=== PATIENT | female | born 1945 | race Two or more races ===

== ENCOUNTER 2023-10-19 23:33 | Inpatient (IN) | payer MEDICARE, OTHER ==
[~2023-10-19] VITALS: Ht 160 cm; Wt 54.4 kg
[2023-10-19] MEDS ORDERED: AMLO-212 PO (23:48)
[2023-10-19] MEDS ORDERED: METO-356 PO (23:48)
[2023-10-19] MEDS ORDERED: LOSA25TA27 PO (23:48)
[2023-10-19] MEDS ORDERED: ROSU10TA2 PO (23:48)
[2023-10-20] MEDS ORDERED: MAGNESIUM HYDROXIDE 30 ML LIQUID UDC PO PRN (01:00)
[2023-10-20] MEDS ORDERED: REMEDY ESSENTIAL ZINC PASTE 113 GM TP PRN (01:00)
[2023-10-20] MEDS: MORPHINE SULFATE 2 MG/1 ML DISP.SYRIN IV PRN ×3 (01:20→20:30)
[2023-10-20] MEDS: ONDANSETRON 4 MG/2 ML VIAL IV PRN (01:21)
[2023-10-20 05:36] LABS: BASOPHILS % (AUTO) 0.4 % (0.0-2.0); EOSINOPHILS % (AUTO) 0.2 % (0.0-7.0); HEMATOCRIT 29.5 % (31.2-41.9); HEMOGLOBIN 9.7 g/dL (10.9-14.3); LYMPHOCYTES # (AUTO) 0.6 K/uL (0.8-4.8); LYMPHOCYTES % (AUTO) 6.8 % (20.5-51.5); MEAN CORPUSCULAR HEMOGLOBIN 27.4 uug (24.7-32.8); MEAN CORPUSCULAR HGB CONC 33 g/dL (32.3-35.6); MEAN CORPUSCULAR VOLUME 83.4 fL (75.5-95.3); MONOCYTES # (AUTO) 0.4 K/uL (0.1-1.30); MONOCYTES % (AUTO) 4.6 % (0.0-11.0); NEUTROPHILS # (AUTO) 7.8 K/uL (1.8-8.9); PLATELET COUNT (AUTO) 222 K/uL (179-408); RED BLOOD CELL COUNT(AUTO) 3.53 MIL/uL (3.63-4.92); RED CELL DISTRIBUTION WIDTH 14.9 % (12.3-17.7); WHITE BLOOD COUNT (AUTO) 8.9 K/uL (3.8-11.8)
[2023-10-20 05:38] LABS: DIFFERENTIAL COMMENT 1
[2023-10-20 05:49] LABS: ALBUMIN 3.2 g/dL (3.4-5.0); BILIRUBIN,TOTAL 0.3 mg/dL (0.2-1.0); CALCIUM 8.8 mg/dL (8.5-10.1); CREATININE 0.8 mg/dL (0.6-1.3); MAGNESIUM 2.1 mg/dL (1.8-2.4); POTASSIUM 4.7 mmol/L (3.5-5.1)
[2023-10-20] MEDS ORDERED: AMLODIPINE 5 MG TABLET ONE (09:22)
[2023-10-20] MEDS ORDERED: METOPROLOL SUCCINATE XL 25 MG TAB.SR.24H PO ONE (09:23)
[2023-10-20] MEDS: LOSARTAN POTASSIUM 25 MG TABLET PO SCH (09:28)
[2023-10-20] MEDS: METOPROLOL SUCCINATE XL 25 MG TAB.SR.24H PO SCH (09:29)
[2023-10-20] MEDS: AMLODIPINE 5 MG TABLET PO SCH (09:29)
[2023-10-20] MEDS ORDERED: MORPHINE SULFATE 2 MG/1 ML DISP.SYRIN ONE (12:04)
[2023-10-20 18:40] VITALS: BP 139/69; TEMP 98; O2SAT 96
[2023-10-20] MEDS: ATORVASTATIN 20 MG TABLET PO SCH (20:29)
[2023-10-20 21:36] VITALS: BP 163/70; TEMP 98.2; O2SAT 93
[2023-10-21 05:43] VITALS: BP 140/67; TEMP 98; O2SAT 94
[2023-10-21 08:00] VITALS: BP 141/54; TEMP 98; O2SAT 94
[2023-10-21] MEDS: LOSARTAN POTASSIUM 25 MG TABLET PO SCH (09:52)
[2023-10-21] MEDS: AMLODIPINE 5 MG TABLET PO SCH (09:55)
[2023-10-21] MEDS: METOPROLOL SUCCINATE XL 25 MG TAB.SR.24H PO SCH (09:55)
[2023-10-21 11:51] VITALS: BP 125/61; TEMP 98.6; O2SAT 94
[2023-10-21] MEDS ORDERED: VANCOMYCIN 1000 MG VIAL ONE (12:14)
[2023-10-21] MEDS ORDERED: BUPIVACAINE 0.25% 30 ML VIAL ONE (12:14)
[2023-10-21] MEDS ORDERED: FENTANYL CITRATE 100 MCG/2 ML AMPUL ONE (14:18)
[2023-10-21] MEDS ORDERED: HYDROCODONE/APAP 5-325MG TABLET PO PRN (16:45)
[2023-10-21] MEDS ORDERED: MORPHINE SULFATE 2 MG/1 ML DISP.SYRIN IV PRN (16:45)
[2023-10-21 17:34] VITALS: BP 110/61; TEMP 97.6; O2SAT 98
[2023-10-21] MEDS: POTASSIUM CHLORIDE 20 MEQ in IV D5 1/2 NS 1000 ML 1,000 ML IV PRN (20:07)
[2023-10-21 20:15] VITALS: BP 90/51; TEMP 97.5; O2SAT 95
[2023-10-21] MEDS: ATORVASTATIN 20 MG TABLET PO SCH (21:50)
[2023-10-21] MEDS: CEFAZOLIN 1 G in IV DEXTROSE 5% 50 ML IV SCH (22:02)
[2023-10-22 05:35] VITALS: BP 93/44; TEMP 98.4; O2SAT 94
[2023-10-22 06:28] LABS: BASOPHILS % (AUTO) 0.2 % (0.0-2.0); LYMPHOCYTES # (AUTO) 0.6 K/uL (0.8-4.8); LYMPHOCYTES % (AUTO) 6.1 % (20.5-51.5); MEAN CORPUSCULAR HEMOGLOBIN 27.6 uug (24.7-32.8); MEAN CORPUSCULAR HGB CONC 33 g/dL (32.3-35.6); MEAN CORPUSCULAR VOLUME 83.4 fL (75.5-95.3); MONOCYTES # (AUTO) 0.7 K/uL (0.1-1.30); NEUTROPHILS # (AUTO) 8.4 K/uL (1.8-8.9); NEUTROPHILS % (AUTO) 86.7 % (38.5-71.5); PLATELET COUNT (AUTO) 186 K/uL (179-408); RED CELL DISTRIBUTION WIDTH 14.9 % (12.3-17.7); WHITE BLOOD COUNT (AUTO) 9.7 K/uL (3.8-11.8)
[2023-10-22] MEDS: CEFAZOLIN 1 G in IV DEXTROSE 5% 50 ML IV SCH (06:32)
[2023-10-22 06:52] LABS: CALCIUM 8.1 mg/dL (8.5-10.1); CARBON DIOXIDE 24 mmol/L (21-32); CHLORIDE 102 mmol/L (98-107); CREATININE 1.5 mg/dL (0.6-1.3); GLUCOSE 190 mg/dL (74-106); PHOSPHOROUS 4.5 mg/dL (2.5-4.9); POTASSIUM 4.6 mmol/L (3.5-5.1); SODIUM SERUM 134 mmol/L (136-145); UREA NITROGEN, BLOOD 29 mg/dL (7-18)
[2023-10-22 08:44] LABS: DIFFERENTIAL COMMENT 1; RED BLOOD CELL COUNT(AUTO) 2.43 MIL/uL (3.63-4.92)
[2023-10-22 08:47] LABS: HEMATOCRIT 20.2 % (31.2-41.9); HEMOGLOBIN 6.7 g/dL (10.9-14.3)
[2023-10-22] MEDS: METOPROLOL SUCCINATE XL 25 MG TAB.SR.24H PO SCH (09:25)
[2023-10-22] MEDS: AMLODIPINE 5 MG TABLET PO SCH (09:25)
[2023-10-22] MEDS: LOSARTAN POTASSIUM 25 MG TABLET PO SCH (09:26)
[2023-10-22 09:30] VITALS: BP 116/95; TEMP 97; O2SAT 98
[2023-10-22 12:00] VITALS: BP 98/46; TEMP 97.9; O2SAT 98
[2023-10-22] MEDS: ACETAMINOPHEN 325 MG TABLET PO PRN (12:01)
[2023-10-22 12:25] LABS: PLATELET ESTIMATE ADEQUATE
[2023-10-22 12:29] LABS: LYMPHOCYTES % (MANUAL) 2 % (20-40); MONOCYTES % (MANUAL) 4 % (2-10); NEUTROPHILS % (MANUAL) 94 % (42-75)
[2023-10-22 15:44] VITALS: BP 107/53; TEMP 97.8; O2SAT 96
[2023-10-22] MEDS ORDERED: CALCIUM CARBONATE 500 MG TAB.CHEW PO PRN (18:00)
[2023-10-22 20:00] VITALS: BP 103/50; TEMP 98; O2SAT 92
[2023-10-22] MEDS: ATORVASTATIN 20 MG TABLET PO SCH (21:02)
[2023-10-22] MEDS: POTASSIUM CHLORIDE 20 MEQ in IV D5 1/2 NS 1000 ML 1,000 ML IV PRN (21:04)
[2023-10-23] VITALS (17 sets, daily range): BP systolic 94–148; BP diastolic 46–71; TEMP 97.1–98.7; O2SAT 93–96
[2023-10-23 07:09] LABS: BASOPHILS % (AUTO) 0.4 % (0.0-2.0); EOSINOPHILS % (AUTO) 0.5 % (0.0-7.0); LYMPHOCYTES # (AUTO) 0.9 K/uL (0.8-4.8); LYMPHOCYTES % (AUTO) 11.9 % (20.5-51.5); MEAN CORPUSCULAR HEMOGLOBIN 27.6 uug (24.7-32.8); MEAN CORPUSCULAR HGB CONC 32 g/dL (32.3-35.6); MEAN CORPUSCULAR VOLUME 85.7 fL (75.5-95.3); MONOCYTES # (AUTO) 0.6 K/uL (0.1-1.30); MONOCYTES % (AUTO) 7.6 % (0.0-11.0); NEUTROPHILS # (AUTO) 6.2 K/uL (1.8-8.9); NEUTROPHILS % (AUTO) 79.6 % (38.5-71.5); PLATELET COUNT (AUTO) 179 K/uL (179-408); RED CELL DISTRIBUTION WIDTH 15.4 % (12.3-17.7); WHITE BLOOD COUNT (AUTO) 7.8 K/uL (3.8-11.8)
[2023-10-23 07:19] LABS: DIFFERENTIAL COMMENT 1; HEMATOCRIT 18.2 % (31.2-41.9); RED BLOOD CELL COUNT(AUTO) 2.13 MIL/uL (3.63-4.92)
[2023-10-23 07:20] LABS: HEMOGLOBIN 5.9 g/dL (10.9-14.3)
[2023-10-23 07:26] LABS: CALCIUM 7.7 mg/dL (8.5-10.1); CARBON DIOXIDE 22 mmol/L (21-32); CHLORIDE 103 mmol/L (98-107); CREATININE 1.4 mg/dL (0.6-1.3); GLUCOSE 230 mg/dL (74-106); PHOSPHOROUS 2.8 mg/dL (2.5-4.9); POTASSIUM 4.8 mmol/L (3.5-5.1); SODIUM SERUM 133 mmol/L (136-145); UREA NITROGEN, BLOOD 43 mg/dL (7-18)
[2023-10-23] MEDS ORDERED: FUROSEMIDE 20 MG/2 ML VIAL IV PRN (09:15)
[2023-10-23 09:27] LABS: IRON, SERUM 8 ug/dL (50-175)
[2023-10-23 11:59] LABS: ANISOCYTOSIS 1+; BASOPHILS % (MANUAL) 0 % (0-2); EOSINOPHILS % (MANUAL) 1 % (0-8); HYPOCHROMASIA 1+; LYMPHOCYTES % (MANUAL) 14 % (20-40); MONOCYTES % (MANUAL) 3 % (2-10); NEUTROPHILS % (MANUAL) 82 % (42-75); OVALOCYTES 1+; PLATELET ESTIMATE ADEQUATE
[2023-10-23] MEDS: ATORVASTATIN 20 MG TABLET PO SCH (20:57)
[2023-10-24 00:03] VITALS: BP 143/53; TEMP 97.7
[2023-10-24 04:00] VITALS: BP 126/61; TEMP 98; O2SAT 96
[2023-10-24 07:27] LABS: BASOPHILS % (AUTO) 0.4 % (0.0-2.0); EOSINOPHILS % (AUTO) 0.4 % (0.0-7.0); HEMATOCRIT 28.9 % (31.2-41.9); HEMOGLOBIN 9.8 g/dL (10.9-14.3); LYMPHOCYTES # (AUTO) 0.9 K/uL (0.8-4.8); LYMPHOCYTES % (AUTO) 10.4 % (20.5-51.5); MEAN CORPUSCULAR HEMOGLOBIN 28.5 uug (24.7-32.8); MEAN CORPUSCULAR HGB CONC 34 g/dL (32.3-35.6); MEAN CORPUSCULAR VOLUME 84.3 fL (75.5-95.3); MONOCYTES # (AUTO) 0.6 K/uL (0.1-1.30); MONOCYTES % (AUTO) 7.5 % (0.0-11.0); NEUTROPHILS % (AUTO) 81.3 % (38.5-71.5); PLATELET COUNT (AUTO) 204 K/uL (179-408); RED BLOOD CELL COUNT(AUTO) 3.43 MIL/uL (3.63-4.92); RED CELL DISTRIBUTION WIDTH 15.1 % (12.3-17.7); WHITE BLOOD COUNT (AUTO) 8.6 K/uL (3.8-11.8)
[2023-10-24 07:29] LABS: DIFFERENTIAL COMMENT 1
[2023-10-24 08:18] LABS: ALANINE AMINOTRANSFERASE 13 U/L (14-59); ALBUMIN 2.3 g/dL (3.4-5.0); ALKALINE PHOSPHATASE 62 U/L (50-136); ASPARTATE AMINOTRANSFERASE 28 U/L (15-37); BILIRUBIN,TOTAL 1.1 mg/dL (0.2-1.0); CALCIUM 8.1 mg/dL (8.5-10.1); CARBON DIOXIDE 23 mmol/L (21-32); CHLORIDE 104 mmol/L (98-107); CHOLESTEROL 99 mg/dL (<200); CREATININE 0.9 mg/dL (0.6-1.3); GLUCOSE 138 mg/dL (74-106); HDL CHOLESTEROL 39 mg/dL (40-60); MAGNESIUM 2.1 mg/dL (1.8-2.4); NT-PRO BNP 1436 pg/mL (0-125); PHOSPHOROUS 2.6 mg/dL (2.5-4.9); POTASSIUM 4.8 mmol/L (3.5-5.1); SODIUM SERUM 137 mmol/L (136-145); TOTAL PROTEIN, SERUM 5.9 g/dL (6.4-8.2); TRIGLYCERIDES 100 MG/DL (30-150); UREA NITROGEN, BLOOD 29 mg/dL (7-18)
[2023-10-24] MEDS: GLUCERNA SHAKE 237 ML CAN PO SCH (08:32)
[2023-10-24 08:55] LABS: CREATINE KINASE, TOTAL 500 U/L (26-192)
[2023-10-24] MEDS: ACETAMINOPHEN 325 MG TABLET PO PRN (09:12)
[2023-10-24 11:34] VITALS: BP 117/50; TEMP 97.3; O2SAT 95
[2023-10-24] MEDS: SOD FERRIC GLUC COMPLX/SUCROSE 125 MG in IV NORMAL SALINE 100 ML IV SCH (14:45)
[2023-10-24] MEDS: LIDOCAINE 5% PATCH TD SCH (14:45)
[2023-10-24 15:38] VITALS: BP 120/61; TEMP 97.3; O2SAT 95
[2023-10-24 20:00] VITALS: BP 133/55; TEMP 98; O2SAT 96
[2023-10-25 04:00] VITALS: BP 135/57; TEMP 97.1; O2SAT 94
[2023-10-25 04:06] LABS: PTH, INTACT 61 pg/mL (15-65)
[2023-10-25 08:10] LABS: A/G RATIO 0.8 (0.7-1.7); ALBUMIN 2.3 g/dL (2.9-4.4); ALPHA-1-GLOBULIN 0.4 g/dL (0.0-0.4); ALPHA-2-GLOBULIN 0.9 g/dL (0.4-1.0); BETA GLOBULIN 0.7 g/dL (0.7-1.3); GAMMA GLOBULIN 0.8 g/dL (0.4-1.8); GLOBULIN, TOTAL 2.8 g/dL (2.2-3.9); M-SPIKE Not Observed g/dL (Not Observed)
[2023-10-25] MEDS: LIDOCAINE 5% PATCH TD SCH (08:57)
[2023-10-25] MEDS: GLUCERNA SHAKE 237 ML CAN PO SCH (08:57)
[2023-10-25 11:37] VITALS: BP 137/69; TEMP 97.8; O2SAT 100
[2023-10-25] MEDS ORDERED: ACET325T53 PO (13:15)
[2023-10-25] MEDS ORDERED: LIDO30AD10 TD (13:15)
[2023-10-25] MEDS ORDERED: MENT113O TP (13:15)
[2023-10-25] MEDS ORDERED: BUME2TAB7 PO (13:15)
[2023-10-25] MEDS ORDERED: CALC500T63 PO (13:15)
[2023-10-25] MEDS ORDERED: FERR324T17 PO (13:15)
[2023-10-25] MEDS ORDERED: NUT.237L36 PO (13:15)
[2023-10-25] MEDS ORDERED: MULT-1045 PO (13:15)
[2023-10-25] MEDS ORDERED: HYDR-3972 PO (13:15)
[2023-10-25] MEDS ORDERED: MAGN400O6 PO (13:15)
[2023-10-25] MEDS ORDERED: DOCU-141 PO (13:15)
[2023-10-25] MEDS ORDERED: PANT40TA2 PO (13:25)
[2023-10-25] MEDS: SOD FERRIC GLUC COMPLX/SUCROSE 125 MG in IV NORMAL SALINE 100 ML IV SCH (14:12)
[2023-10-25] MEDS: ONDANSETRON 4 MG/2 ML VIAL IV PRN (14:30)
[2023-10-25 15:38] VITALS: BP 135/66; TEMP 97.4; O2SAT 95
== END 2023-10-25 17:33 | DRG 492 ==
LOC: ER 23:35 → TRANSITION 10-20 01:55 → MEDSURG3 10-20 17:46
PROVIDERS: ADMIT Nurse Practitioner Family; ATTEND Student in an Organized Health Care Education/Training Program
PROC: 2W3RX1Z Immobilization of Left Lower Leg using Splint (ICD-10-PCS; 2023-10-19)
PROC: 0QHK04Z Insertion of Internal Fixation Device into Left Fibula, Open Approach (ICD-10-PCS; principal; 2023-10-21)
PROC: 0QSH04Z Reposition Left Tibia with Internal Fixation Device, Open Approach (ICD-10-PCS; 2023-10-21)
PROC: 30233N1 Transfusion of Nonautologous Red Blood Cells into Peripheral Vein, Percutaneous Approach (ICD-10-PCS; 2023-10-23)
DX: S82.832A Other fracture of upper and lower end of left fibula, initial encounter for closed fracture (principal); E43 Unspecified severe protein-calorie malnutrition; I50.31 Acute diastolic (congestive) heart failure; N17.0 Acute kidney failure with tubular necrosis; D68.59 Other primary thrombophilia; D62 Acute posthemorrhagic anemia; J98.11 Atelectasis; K92.2 Gastrointestinal hemorrhage, unspecified; D64.89 Other specified anemias; S82.392A Other fracture of lower end of left tibia, initial encounter for closed fracture; W18.30XA Fall on same level, unspecified, initial encounter; Y92.039 Unspecified place in apartment as the place of occurrence of the external cause; D50.9 Iron deficiency anemia, unspecified; Z74.09 Other reduced mobility; M75.02 Adhesive capsulitis of left shoulder; I11.0 Hypertensive heart disease with heart failure; E78.5 Hyperlipidemia, unspecified; Z79.899 Other long term (current) drug therapy; M81.0 Age-related osteoporosis without current pathological fracture; Z68.21 Body mass index [BMI] 21.0-21.9, adult; R73.9 Hyperglycemia, unspecified; K44.9 Diaphragmatic hernia without obstruction or gangrene; E86.0 Dehydration
CPT/HCPCS: 36415; 70030-TC; 71045; 73030; 73080; 73590; 73610; 82378; 83550; 83735; 83970; 84100; 84155; 84165; 85025; 85610; 86850; 86900; 86901; 86920; 93307; A4649; A4663; C1713; G0378; J0690; J2270; J2405; J2916; J3010; J3370; J3480; J3490; P9016